=== PATIENT | female | born 2005 | race Caucasian/White ===

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

== ENCOUNTER 2024-01-07 02:20 | Emergency (ER) | payer OTHER ==
[~2024-01-07] VITALS: Ht 160 cm; Wt 49.4 kg
[~2024-01-07 02:20] MED LIST changes: +MONISTAT 324 GM V; +TAMIFLU 75MG CA75 MG PO
[2024-01-07] MEDS ORDERED: AMOX-CLAV 875-1 EACH PO (02:36)
[2024-01-07] MEDS ORDERED: Ketorolac Tromethamine 30 MG/ML VIAL IM ONE (02:40)
== END 2024-01-07 02:45 | disposition home or self-care (01) ==
LOC: ED 02:20
DX: K08.59 Other unsatisfactory restoration of tooth (principal); F17.200 Nicotine dependence, unspecified, uncomplicated; Z91.011 Allergy to milk products; Z79.899 Other long term (current) drug therapy; Z90.49 Acquired absence of other specified parts of digestive tract

== ENCOUNTER 2024-03-15 21:11 | Emergency (ER) | payer OTHER ==
[~2024-03-15] VITALS: Ht 160 cm; Wt 54.4 kg
[2024-03-15] MEDS ORDERED: Amoxicillin/Clavulanate Pota 875 MG TAB PO ONE (22:10)
[2024-03-15] MEDS ORDERED: AMOX-CLAV 875-1 EACH PO (22:10)
== END 2024-03-15 22:12 | disposition home or self-care (01) ==
LOC: ED 21:11
DX: J03.90 Acute tonsillitis, unspecified (principal); Z20.822 Contact with and (suspected) exposure to COVID-19; R11.2 Nausea with vomiting, unspecified; F90.9 Attention-deficit hyperactivity disorder, unspecified type; J45.909 Unspecified asthma, uncomplicated; Z91.011 Allergy to milk products; Z90.49 Acquired absence of other specified parts of digestive tract; Z98.890 Other specified postprocedural states

== ENCOUNTER → 2024-06-18 | Outpatient (CLI) | payer OTHER | END | disposition home or self-care (01) | LOC: LAB 14:21 | DX: Z79.899 Other long term (current) drug therapy (principal) ==

== ENCOUNTER → 2024-09-03 | Outpatient (CLI) | payer OTHER ==
[2024-09-03 15:05] LABS: BASO # 0.1 10*3/uL (0.0-0.1); BASO % 0.7 % (0.0-1.0); EOS # 0.2 10*3/uL (0.0-0.4); EOS % 1.8 % (1.0-4.0); HEMATOCRIT 34.2 % (37.0-47.0); MEAN PLATELET VOLUME 10.3 fl (9.6-12.3); MONO # 0.7 10*3/uL (0.1-1.0); NEUT # 6.4 10*3/uL (2.3-7.9); NEUT % 66.5 % (47.0-73.0); PLATELET COUNT AUTOMATED 300 10*3/uL (130-400); RED BLOOD COUNT 3.93 10*6/uL (4.10-5.10); RED CELL DISTRI WIDTH 14.2 % (0-14.5); WHITE BLOOD COUNT 9.6 10*3/uL (4.8-10.8)
== END | disposition home or self-care (01) ==
LOC: LAB 14:46
PROVIDERS: ATTEND Family Medicine
DX: N93.9 Abnormal uterine and vaginal bleeding, unspecified (principal); R23.8 Other skin changes; Z83.2 Family history of diseases of the blood and blood-forming organs and certain disorders involving the immune mechanism

== ENCOUNTER 2024-10-12 09:47 | Emergency (ER) | payer OTHER ==
[~2024-10-12] VITALS: Ht 160 cm; Wt 63.5 kg
[2024-10-12 10:24] LABS: BILIRUBIN Negative (Negative); BLOOD 2+ (Negative); CLARITY Clear (Clear); COLOR Yellow (Yellow); GLUCOSE Negative (Negative); KETONE Negative (Negative); LEUKO ESTERASE 1+ (Negative); NITRITE Negative (Negative); SPECIFIC GRAVITY 1.015 (1.001-1.030); UROBILINOGEN 0.2 E.U./dl (0.0-1.0)
[2024-10-12 10:30] LABS: BASO % 0.4 % (0.0-1.0); EOS # 0.1 10*3/uL (0.0-0.4); EOS % 1.3 % (1.0-4.0); HEMATOCRIT 36.5 % (37.0-47.0); MEAN CELL VOLUME 87.3 fl (81.0-99.0); MEAN CORPUSCULAR HGB 28.2 pg (27.0-31.0); MEAN CORPUSCULAR HGB CONC 32.3 g/dl (33.0-37.0); MONO # 0.8 10*3/uL (0.1-1.0); MONO % 9.6 % (3.0-9.0); NEUT # 4.9 10*3/uL (2.3-7.9); NEUT % 62.1 % (47.0-73.0); PLATELET COUNT AUTOMATED 249 10*3/uL (130-400); RED BLOOD COUNT 4.18 10*6/uL (4.10-5.10); RED CELL DISTRI WIDTH 14.2 % (0-14.5); WHITE BLOOD COUNT 7.9 10*3/uL (4.8-10.8)
[2024-10-12 10:51] LABS: RBC TNTC rbc/hpf (0-2)
[2024-10-12 10:52] LABS: BACTERIA 1+; EPITHELIAL CELLS 16-20
[2024-10-12 11:02] LABS: B-hCG (QUALITATIVE) NEGATIVE (NEGATIVE); BUN 8 mg/dl (9-23); CHLORIDE 107 mmol/L (98-107); POTASSIUM 3.4 mmol/L (3.4-5.1)
[2024-10-12] MEDS ORDERED: CIPRO500 MG PO (11:51)
== END 2024-10-12 11:57 | disposition home or self-care (01) ==
LOC: ED 09:47
PROVIDERS: Emergency Medicine
DX: O03.9 Complete or unspecified spontaneous abortion without complication (principal); O23.41 Unspecified infection of urinary tract in pregnancy, first trimester; N39.0 Urinary tract infection, site not specified; O99.331 Smoking (tobacco) complicating pregnancy, first trimester; F17.200 Nicotine dependence, unspecified, uncomplicated; Z91.011 Allergy to milk products; Z90.49 Acquired absence of other specified parts of digestive tract; Z3A.01 Less than 8 weeks gestation of pregnancy

== ENCOUNTER 2025-03-10 12:36 | Emergency (ER) | payer OTHER ==
[~2025-03-10 12:36] MED LIST changes: +CIPRO500 MG PO
[2025-03-10] MEDS ORDERED: MG-AL HYDROXIDE/SIMETICONE 30 ML UDC PO STA (14:31)
[2025-03-10] MEDS ORDERED: Dicyclomine Hydrochloride 20 MG/10 ML OSYR PO STA (14:31)
[2025-03-10] MEDS ORDERED: FAMOTIDINE 20 MG TAB PO ONE (14:35)
[2025-03-10 14:47] LABS: BASO # 0.1 10*3/uL (0.0-0.1); BASO % 0.4 % (0.0-1.0); EOS # 0.0 10*3/uL (0.0-0.4); EOS % 0.3 % (1.0-4.0); MEAN CELL VOLUME 88.1 fl (81.0-99.0); MEAN CORPUSCULAR HGB 29.8 pg (27.0-31.0); MEAN PLATELET VOLUME 10.1 fl (9.6-12.3); MONO # 0.6 10*3/uL (0.1-1.0); MONO % 4.5 % (3.0-9.0); NEUT # 9.7 10*3/uL (2.3-7.9); NEUT % 76.4 % (47.0-73.0); NUCLEATED RED BLOOD CELL 0.0 % (0.0-0.0); NUCLEATED RED BLOOD CELL 0.0 10*3/uL (0.0-0.0); PLATELET COUNT AUTOMATED 290 10*3/uL (130-400); RED CELL DISTRI WIDTH 12.6 % (0-14.5)
[2025-03-10 14:54] LABS: BILIRUBIN Negative (Negative); BLOOD Negative (Negative); CLARITY Cloudy (Clear); COLOR Yellow (Yellow); KETONE Trace (Negative); LEUKO ESTERASE Trace (Negative); NITRITE Negative (Negative); PH 6.0 (4.5-8.0); SPECIFIC GRAVITY >= 1.030 (1.001-1.030); UROBILINOGEN 1.0 E.U./dl (0.0-1.0)
[2025-03-10 15:01] LABS: URINE AMPHETAMINES Negative (1000ng/ml); URINE BARBITURATES Negative (200ng/ml); URINE BENZODIAZEPINES Negative (200ng/ml); URINE CANNABINOIDS (THC) Positive (50ng/ml); URINE COCAINE Negative (300ng/ml); URINE METHADONE Negative (300ng/ml); URINE OPIATES Negative (300ng/ml); URINE PHENCYCLIDINE Negative (25ng/ml)
[2025-03-10 15:07] LABS: BACTERIA 2+; EPITHELIAL CELLS 21-30; MUCOUS 1+; RBC 0-2 rbc/hpf (0-2)
[2025-03-10 15:09] LABS: BUN 13 mg/dl (9-23); SGPT/ALT 11 U/L (5-49)
[2025-03-10] MEDS ORDERED: CEPHALEXIN 500 MG CAP PO ONE (15:30)
[2025-03-10] MEDS ORDERED: ATARAX,VISTARIL50 MG PO (15:31)
[2025-03-10] MEDS ORDERED: CEPHALEXIN500 M1 PO (15:31)
[2025-03-10] MEDS ORDERED: PEPCID20 MG PO (15:43)
== END 2025-03-10 18:20 | disposition home or self-care (01) ==
LOC: ED 12:36
PROVIDERS: Nurse Practitioner
DX: N39.0 Urinary tract infection, site not specified (principal); F41.9 Anxiety disorder, unspecified

== ENCOUNTER 2025-03-20 00:15 | Emergency (ER) | payer OTHER ==
[~2025-03-20] VITALS: Ht 160 cm; Wt 68.0 kg
[~2025-03-20 00:15] MED LIST changes: +ATARAX,VISTARIL50 MG PO; +CEPHALEXIN500 M1 PO; +PEPCID20 MG PO
[2025-03-20] MEDS ORDERED: PREDNISONE20 M1 PO (00:32)
== END 2025-03-20 00:45 | disposition home or self-care (01) ==
LOC: ED 00:15
DX: L23.7 Allergic contact dermatitis due to plants, except food (principal); Z91.011 Allergy to milk products; Z79.899 Other long term (current) drug therapy; Z90.49 Acquired absence of other specified parts of digestive tract

== ENCOUNTER 2025-07-27 21:22 | Emergency (ER) | payer OTHER ==
[2025-07-27 22:07] LABS: BILIRUBIN Negative (Negative); BLOOD Negative (Negative); CLARITY Cloudy (Clear); COLOR Yellow (Yellow); KETONE Negative (Negative); LEUKO ESTERASE 1+ (Negative); NITRITE Negative (Negative); PH 6.0 (4.5-8.0); SPECIFIC GRAVITY >= 1.030 (1.001-1.030); UROBILINOGEN 1.0 E.U./dl (0.0-1.0)
[2025-07-27 22:19] LABS: BACTERIA 2+; EPITHELIAL CELLS 16-20
[2025-07-27] MEDS ORDERED: Sulfamethoxazole/Trimethopri 1 TAB TAB PO ONE (22:25)
[2025-07-27] MEDS ORDERED: Phenazopyridine Hydrochlorid2 100 MG TAB PO ONE (22:25)
[2025-07-27] MEDS ORDERED: SEPTDS PO (22:33)
== END 2025-07-27 22:39 | disposition home or self-care (01) ==
LOC: ED 21:22
PROVIDERS: Student in an Organized Health Care Education/Training Program
DX: N39.0 Urinary tract infection, site not specified (principal); F90.9 Attention-deficit hyperactivity disorder, unspecified type; J45.909 Unspecified asthma, uncomplicated; Z91.0110 Allergy to milk products, unspecified